=== PATIENT | male | born 1975 | race Caucasian/White ===

== ENCOUNTER 2023-09-22 10:17 | Inpatient (IN) | payer OTHER ==
[2023-09-22] MEDS ORDERED: chlordiazePOXIDE HCL 25 MG CAPSULE PO PRN (10:54)
[2023-09-22] MEDS ORDERED: NICOTINE POLACRILEX 2 MG GUM BUC PRN (10:55)
[2023-09-22] MEDS ORDERED: IBUPROFEN 400 MG TABLET (FP) PO PRN (10:55)
[2023-09-22] MEDS ORDERED: METHOCARBAMOL 500 MG TABLET PO PRN (10:55)
[2023-09-22] MEDS ORDERED: NICOTINE POLACRILEX 2 MG LOZENGE BC PRN (10:55)
[2023-09-22] MEDS ORDERED: MAG HYDROX/AL HYDROX/SIMETH 30 ML UNIT-DOSE CUP PO PRN (10:55)
[2023-09-22] MEDS ORDERED: guaiFENesin 600 MG TABLET.ER (FP) PO PRN (10:55)
[2023-09-22] MEDS ORDERED: BENZOCAINE/MENTHOL (CHLORASEPTIC ) LOZENGE MM PRN (10:55)
[2023-09-22] MEDS ORDERED: DICYCLOMINE HCL 10 MG CAPSULE PO PRN (10:55)
[2023-09-22] MEDS ORDERED: BISMUTH SUBSALICYLATE 262 MG/15 ML BTL PO PRN (10:55)
[2023-09-22] MEDS ORDERED: MAGNESIUM HYDROX 2400MG/30ML ORAL SUSPENSION 30 ML CUP PO PRN (10:55)
[2023-09-22] MEDS ORDERED: hydrOXYzine PAMOATE 25 MG CAPSULE (FP) PO PRN (10:55)
[2023-09-22] MEDS ORDERED: POLYETHYLENE GLYCOL (HEALTHYLAX) 3350 17 GM PACKET PO PRN (10:55)
[2023-09-22] MEDS ORDERED: LOPERAMIDE HCL 2 MG CAPSULE PO PRN (10:55)
[2023-09-22] MEDS ORDERED: ONDANSETRON *ODT* 4 MG TABLET SL PRN (10:55)
[2023-09-22] MEDS ORDERED: BENZONATATE 200 MG CAPSULE PO PRN (10:55)
[2023-09-22] MEDS: chlordiazePOXIDE HCL 25 MG CAPSULE PO SCH (11:04)
[2023-09-22] MEDS: IBUPROFEN 600 MG TABLET (FP) PO PRN (11:34)
[2023-09-22 12:20] VITALS: BMI 28.4
[2023-09-22] MEDS: MELATONIN 5 MG TABLETS PO SCH (23:44)
[2023-09-22] MEDS: THIAMINE 100 MG TABLET PO SCH (23:45)
[2023-09-23] MEDS: ACETAMINOPHEN 325 MG TABLET (FP) PO PRN (07:19)
[2023-09-23] MEDS: PRENATAL VITAMINS W/ FOLIC ACID TABLET (FP) PO SCH (10:07)
[2023-09-23 11:41] LABS: HEMATOCRIT 40.3 % (35.4-49); HEMOGLOBIN 13.3 GM/dL (11.7-16.9); MCH 27.7 pg (25.7-33.7); MEAN CELL VOLUME 83.8 fl (80-96); MEAN PLT VOLUME 7.5 fl (7.5-11.1); PLATELET COUNT 338 10^3/uL (134-434); RBC 4.81 M/mm3 (4.00-5.60); RDW 16.2 % (11.9-15.9); WHITE BLOOD COUNT 7.6 K/mm3 (4.0-10.0)
[2023-09-23 11:53] LABS: POTASSIUM 3.6 mmol/L (3.5-5.1)
[2023-09-23 11:59] LABS: ALBUMIN 2.8 g/dl (3.4-5.0)
[2023-09-23 12:00] LABS: BLOOD UREA NITROGEN 12.5 mg/dL (7-18); CALCIUM 8.7 mg/dL (8.5-10.1)
[2023-09-23 12:03] LABS: CREATININE 0.9 mg/dL (0.55-1.3)
[2023-09-23 12:04] LABS: BILIRUBIN,TOTAL 1.2 mg/dL (0.2-1)
[2023-09-23 12:05] LABS: TOT PROT 5.5 g/dl (6.4-8.2)
[2023-09-23 12:47] VITALS: BP 125/80; PULSE 83; RESP 17; TEMP 98.6
[2023-09-24] MEDS ORDERED: chlordiazePOXIDE HCL 25 MG CAPSULE PO SCH (05:00)
[2023-09-25] MEDS ORDERED: chlordiazePOXIDE HCL 10 MG CAPSULE PO PRN
[2023-09-25] MEDS ORDERED: chlordiazePOXIDE HCL 10 MG CAPSULE PO SCH (05:00)
[2023-09-26] MEDS ORDERED: chlordiazePOXIDE HCL 10 MG CAPSULE PO SCH (05:00)
[2023-09-27] MEDS ORDERED: chlordiazePOXIDE HCL 10 MG CAPSULE PO ONE (05:00)
== END 2023-09-23 15:50 | disposition left against medical advice (07) | DRG 770 ==
LOC: YASAS 10:17 → Y6N 11:23
PROVIDERS: ADMIT Allergy & Immunology; ATTEND Surgery
PROC: HZ2ZZZZ Detoxification Services for Substance Abuse Treatment (ICD-10-PCS; principal; 2023-09-22)
DX: F10.230 Alcohol dependence with withdrawal, uncomplicated (principal); F14.20 Cocaine dependence, uncomplicated; F12.20 Cannabis dependence, uncomplicated; F17.210 Nicotine dependence, cigarettes, uncomplicated; F31.9 Bipolar disorder, unspecified; Z88.0 Allergy status to penicillin
CPT/HCPCS: 36415; 80053; 80305; 80307; 85027; 86780; 93005; 93010